=== PATIENT | male | born 1955 | race Caucasian/White ===

== ENCOUNTER 2016-06-25 14:35 | Emergency (ER) | payer SELFPAY ==
[~2016-06-25 14:35] MED LIST: OMEP20TA PO
[2016-06-25 14:36] VITALS: BP 161/86; PULSE 63; RESP 14; O2SAT 96
== END 2016-06-25 15:48 | disposition left against medical advice (07) ==
LOC: NED 14:35
DX: Z03.89 Encounter for observation for other suspected diseases and conditions ruled out (principal)
CPT/HCPCS: 99281